=== PATIENT | female | born 1990 | race Caucasian/White ===

== ENCOUNTER 2016-11-08 23:00 | Emergency (ER) | payer OTHER ==
[2016-11-09] MEDS ORDERED: Cyclobenzaprine TAB* 10 MG PO ONE (00:36)
[2016-11-09] MEDS ORDERED: Ketorolac INJ* 60 MG/2 ML VIAL IM ONE (00:36)
[2016-11-09] MEDS ORDERED: HYDROcodone/ACETAMIN 5-325 MG* 1 TAB PO ONE (00:38)
--- NOTE | 2016-11-09 00:57 | ED ---
Back Pain - HPI Summary HPI Summary: Patient presents to ED with chronic yet intermittent lower back pain which radiates to the anterior thighs bilaterally and abdomen. She states the pain often will shoot down the leg and into the foot. Denies urinary symptoms. Denies bladder or bowel dysfunction. Patient states each time she is seen by her PCP or the ED she receives pain medications and nobody has told her how to get rid of the problem. Denies other health problems, however patient is a smoker. 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 Pain is bilateral to the spine and never midline. - History of Current Complaint Chief Complaint: EDBackInjuryPain Stated Complaint: BACK PAIN Time Seen by Provider: 11/08/16 23:33 Hx Obtained From: Patient Hx Last Menstrual Period: pt has iud Onset/Duration: Gradual Onset Onset/Duration: Started Weeks Ago Timing: Intermittent Back Pain Location: Is Discrete @ - bilateral to the lower spine - no midline tenderness Pain Intensity: 5 Pain Scale Used: 0-10 Numeric Character: Aching, Spasmodic Aggravating Symptom(s): Movement, Lifting, Bending, Walking Alleviating Symptom(s): Rest, Position Associated Signs And Symptoms: Positive: Abdominal Pain, Other - anterior thigh pain - Risk Factors AAA Risk Factors: Smoking TAD Risk Factors: Smoking Cauda Equina Risk Factors: Negative Epidural Abscess Risk Factors: Negative - Allergies/Home Medications Allergies/Adverse Reactions: Allergies Allergy/AdvReac Type Severity Reaction Status Date / Time No Known Allergies Allergy Verified 02/10/16 10:50 PMH/Surg Hx/FS Hx/Imm Hx Previously Healthy: Yes Endocrine/Hematology History: Denies: Hx Diabetes, Hx Thyroid Disease Cardiovascular History: Denies: Hx Hypertension Respiratory History: Denies: Hx Asthma, Hx Chronic Obstructive Pulmonary Disease (COPD) GI History: Denies: Hx Ulcer - Immunization History Hx Pertussis Vaccination: No Immunizations Up to Date: No Infectious Disease History: Denies: Hx Clostridium Difficile, Hx Hepatitis, Hx Human Immunodeficiency Virus (HIV), Hx of Known/Suspected MRSA, Hx Shingles, Hx Tuberculosis, Hx Known/ Suspected VRE, Hx Known/Suspected VRSA, History Other Infectious Disease, Traveled Outside the [place] in Last 30 Days - Family History Known Family History: Positive: None, Hypertension, Diabetes - Social History Occupation: Employed Full-time Lives: With Family Alcohol Use: Occasionally Hx Substance Use: No Substance Use Type: Reports: None Hx Tobacco Use: Yes Smoking Status (MU): Light Every Day Tobacco Smoker Type: Cigarettes Amount Used/How Often: 1/2 ppd Have You Smoked in the Last Year: Yes Review of Systems Constitutional: Negative Cardiovascular: Negative Respiratory: Negative Positive: no symptoms reported, see HPI Positive: Arthralgia, Myalgia - bilateral back pain over sacroiliac joints Skin: Negative Neurological: Negative Psychological: Normal All Other Systems Reviewed And Are Negative: Yes Physical Exam Triage Information Reviewed: Yes Vital Signs On Initial Exam: Initial Vitals Temp Pulse Resp BP Pulse Ox 97.6 F 84 18 116/77 100 11/08/16 23:03 11/08/16 23:03 11/08/16 23:03 11/08/16 23:03 11/08/16 23:03 Vital Signs Reviewed: Yes Appearance: Positive: Well-Appearing, Well-Nourished Skin: Positive: Warm, Skin Color Reflects Adequate Perfusion Eyes: Positive: [employer], Conjunctiva Clear Neck: Positive: Supple, No Lymphadenopathy Respiratory/Lung Sounds: Positive: Clear to Auscultation, Breath Sounds Present Cardiovascular: Positive: Normal, RRR, Pulses are Symmetrical in both Upper and Lower Extremities Musculoskeletal: Positive: Limited @ - d/t pain, Pain @ - sacroiliac joints bilaterally radiating to the anterior thighs and abdomen Neurological: Positive: Normal, Sensory/Motor Intact, Alert, Oriented to Person Place, Time, Speech Normal Psychiatric: Positive: Normal AVPU Assessment: Alert - Gina Coma Scale Best Eye Response: 4 - Spontaneous Best Motor Response: 6 - Obeys Commands Best Verbal Response: 5 - Oriented Diagnostics - Vital Signs Vital Signs Temp Pulse Resp BP Pulse Ox 11/08/16 23:03 97.6 F 84 18 116/77 100 - Laboratory Lab Statement: Any lab studies that have been ordered have been reviewed, and results considered in the medical decision making process. Back Pain Course/Dx - Course Course Of Treatment: Patient encouraged to follow up with ortho for persistent symptoms. Provider explained to patient the importance of lumbar back exercises , anti-inflammatories such as Ibuprofen, lidocaine patches and controlled substances for temporary relief. Relayed to patient these will merely improve symptoms short-term and she may need further evaluation or imaging through and orthopedist. Encouraged yoga for long-term improvement as well as turmeric for inflammation. Smoking and alcohol cessation discussed. Patient OK with plan and discharge. - Diagnoses Differential Diagnosis/HQI/PQRI: Positive: Cauda Equina Syndrome, Strain, Sprain Provider Diagnoses: Sciatica Discharge - Discharge Plan Condition: Stable Disposition: HOME Prescriptions: Cyclobenzaprine TAB* [Flexeril TAB*] 10 mg PO BID PRN #10 tab MDD 2 PRN Reason: Pain Gabapentin CAP(*) [Neurontin 300 CAP(*)] 300 mg PO TID #90 cap Hydrocodone/Acetamin 10/325(NF [[place] 10/325 (NF)] 1 tab PO Q6H #15 tab MDD 4 Lidocaine PATCH 5%* [Lidoderm 5% Patch*] 1 patch TRANSDERM DAILY #15 patch Patient Education Materials: Sciatica (ED), Lumbar Radiculopathy (ED), Piriformis Syndrome (ED), Lower Back Exercises (ED) Forms: *Work Release Referrals: Candida Brewer MD [Medical Doctor] - Shiva Fonseca MD [Primary Care Provider] - Additional Instructions: Follow up with Dr. Brewer or someone in her office. Exercises, yoga, turmeric and physical therapy long-term will help with sciatica. Moist heat as much as possible for comfort. Ibuprofen 600mg three times daily for pain. Avoid alcohol and smoking as these are inflammatory and will worsen your symptoms. Gabapentin 3 x daily until gone. Follow up with your primary to determine if they would like you to continue with this medication. Flexeril at bedtime or if you are experiencing muscle spasms. Hydrocodone for breakthrough pain not well controlled with Ibuprofen. Lidocaine patches to the lumbar spine daily as needed for pain. Turmeric (this comes in pill form or you can get the spice) - this will help with inflammation.
[2016-11-09] MEDS ORDERED: Lidocaine PATCH 5%* 1 PATCH TRANSDERM SCH (01:00)
[2016-11-09 01:25] VITALS: BP 104/57
[2016-11-09] MEDS ORDERED: Lidocaine Patch REMOVE* 1 NOTE MISC SCH (21:00)
== END 2016-11-09 01:24 | disposition home or self-care (01) ==
LOC: ED 23:00
DX: M54.30 Sciatica, unspecified side (principal); M54.5 Low back pain; F17.210 Nicotine dependence, cigarettes, uncomplicated
CPT/HCPCS: 99282; A9270-GY; J1885

== ENCOUNTER 2017-12-02 17:01 | Emergency (ER) | payer OTHER ==
--- NOTE | 2017-12-02 18:56 | RAD ---
Indication: Spotting, 7 weeks . Real-time sonography of the was performed. There is a single intrauterine gestation. Elverta-rump length measures 4 mm corresponding to gestational age of 6 weeks 0 days. heart activity is noted at 110 bpm. There is a small subchorionic hemorrhage measuring 5 x 1 x 7 mm. Amniotic fluid is within normal limits. Right ovary measures 2.8 x 1.7 x 1.7 cm. Left ovary measures 2.9 x 1.2 x 2.7 cm. No adnexal masses are noted. IMPRESSION: Single intrauterine gestation with a gestational age of 6 weeks 3 days. Estimated date of delivery is July 25, 2018. heart activity at 1 10 bpm. Small subchorionic hemorrhage is noted.
[2017-12-02 19:03] VITALS: BP 122/62
[2017-12-02 19:08] LABS: ABS Basophils 0 10^3/ul (0-0.2); ABS Eosinophils 0.1 10^3/ul (0-0.6); ABS Lymphocytes 1.9 10^3/ul (1.0-4.8); ABS Monocytes 0.8 10^3/ul (0-0.8); ABS Neutrophils 5.3 10^3/ul (1.5-7.7); ABS Nucleated RBC 0 10^3/ul; Eosinophil % 0.7 % (0-6); Hematocrit 37 % (35-47); Hemoglobin 12.7 g/dl (12.0-16.0); Lymphocyte % 23.1 % (25-47); Mean Corpuscular HGB Conc 34 g/dl (31-36); Mean Corpuscular Hemoglobin 32 pg (27-31); Mean Corpuscular Volume 92 fL (80-97); Mean Platelet Volume 8.5 um3 (7.4-10.4); Nucleated Red Blood Cells % 0.1; Platelet Count 232 10^3/ul (150-450); Red Blood Count 3.99 10^6/ul (4.0-5.4); Red Cell Distribution Width 14 % (10.5-15)
[2017-12-02 19:21] LABS: INR 1.02 (0.77-1.02)
[2017-12-02 19:27] LABS: EGFR Non-African American 150.3 (>60)
[2017-12-02 19:57] LABS: Urine Appearance Cloudy; Urine Blood 1+ (Negative); Urine Color Yellow; Urine Ketones Negative (Negative); Urine Protein Negative (Negative); Urine Specific Gravity 1.009 (1.010-1.030); Urine Urobilinogen Negative (Negative)
--- NOTE | 2017-12-02 23:40 | ED ---
Mack Hannah Nikita, scribed for Tequila Owens MD on 12/02/17 at 1807 . GI/ HPI - HPI Summary HPI Summary: This patient is a 27 year old F presenting to ED with a chief complaint of vaginal spotting for 2 days. She is 7 weeks , is taking vitamins, but has not seen her OB provider yet. The bleeding is described as constant, dark red blood with one clot,spotting, not requiring pads. She had one previous episode of spotting last week as well. The patient called her OB at [facility] with Dr. Alfonso and her first appointment is 4 days from today. The patient rates the pain 0/10 in severity. Symptoms aggravated by nothing. Symptoms alleviated by nothing. Patient reports fatigue. She currently does not have a due date for her . A2. Her LMP was 10/13/17. Her only child is 4 years old and this was her second . No PMHx. The patient had a D[place] that was done [place] [facility] [place] one of the [place]riages. In her past pregnancies, the patient reports she had been anemic and sick and had an infection after her child was born. She is currently taking vitamins, takes OTC Tylenol for any pain, and has no known allergies to medicine. The patient had peanuts and vitamin water 2 hours ago. Pt did not require rhogam in her prior pregnancies. - History of Current Complaint Chief Complaint: EDGeneral Time Seen by Provider: 12/02/17 17:57 Stated Complaint: 7 WKS PREG/SPOTTING Hx Obtained From: Patient Hx Last Menstrual Period: 10/13/17 Onset/Duration: Started Days Ago, Still Present Timing: Intermittent - 1 episode last week and another episode that started 2 days ago, Lasting Days Severity: Mild Current Severity: None Vaginal Bleeding Description: Dark Red, Clots Number of Pads per Day: 0 Pain Intensity: 0 Associated Signs and Symptoms: Positive: Other: - vaginal spotting, fatigue Additional Signs & Symptoms: Positive: Other: - vaginal spotting (constant, just dark red blood with one clot in her spotting), fatigue from current sickness Aggravating Factor(s): Nothing Alleviating Factor(s): Nothing - Allergy/Home Medications Allergies/Adverse Reactions: Allergies Allergy/AdvReac Type Severity Reaction Status Date / Time No Known Allergies Allergy Verified 12/02/17 17:09 PMH/Surg Hx/FS Hx/Imm Hx Previously Healthy: Yes Endocrine/Hematology History: Denies: Hx Diabetes, Hx Thyroid Disease Cardiovascular History: Denies: Hx Hypertension Respiratory History: Denies: Hx Asthma, Hx Chronic Obstructive Pulmonary Disease (COPD) GI History: Denies: Hx Ulcer - Surgical History Surgery Procedure, Year, and Place: D & C Infectious Disease History: No Infectious Disease History: Denies: Hx Clostridium Difficile, Hx Hepatitis, Hx Human Immunodeficiency Virus (HIV), Hx of Known/Suspected MRSA, Hx Shingles, Hx Tuberculosis, Hx Known/ Suspected VRE, Hx Known/Suspected VRSA, History Other Infectious Disease, Traveled Outside the [place] in Last 30 Days - Family History Known Family History: Positive: Hypertension, Diabetes - grandfather - Social History Alcohol Use: Occasionally Hx Substance Use: No Substance Use Type: Reports: None Hx Tobacco Use: Yes Smoking Status (MU): Former Smoker Type: Cigarettes Amount Used/How Often: 1/2 ppd Have You Smoked in the Last Year: Yes Review of Systems Positive: Fatigue Cardiovascular: Negative Respiratory: Negative Gastrointestinal: Negative Positive: other - vaginal spotting Skin: Negative Neurological: Negative Psychological: Normal All Other Systems Reviewed And Are Negative: Yes Physical Exam - Summary Physical Exam Summary: Appearance: Well-appearing, no pain distress, Well-nourished Skin: Warm, color reflects adequate perfusion Head: Normal Head/Face inspection Eyes: Conjunctiva clear ENT: Normal inspection Neck: Supple, no nodes, no JVD. Respiratory: Lungs clear, Normal breath sounds, no respiratory distress Cardio: RRR, No murmur, pulses normal, brisk capillary refill Abdomen: soft, nontender Bowel sounds: present Musculoskeletal: Strength Intact/ ROM intact. No calf tenderness. No edema. Psychological: Normal Neuro: Alert, muscle tone normal, no focal deficit Triage Information Reviewed: Yes Vital Signs On Initial Exam: Initial Vitals Temp Pulse Resp BP Pulse Ox 98.6 F 80 20 102/53 100 12/02/17 17:03 12/02/17 17:03 12/02/17 17:03 12/02/17 17:03 12/02/17 17:03 Vital Signs Reviewed: Yes Diagnostics - Vital Signs Vital Signs Temp Pulse Resp BP Pulse Ox 12/02/17 17:03 98.6 F 80 20 102/53 100 - Laboratory Result Diagrams: 12/02/17 18:58 12/02/17 18:58 Lab Statement: Any lab studies that have been ordered have been reviewed, and results considered in the medical decision making process. - Additional Comments Diagnostic Additional Comments: Transvaginal US reveals: Single intrauterine gestation with a gestational age of 6 weeks 3 days. Estimated date of delivery is July 25, 2018. heart activity at 1 10 bpm. Small subchorionic hemorrhage is noted. ED physician has reviewed this radiology report. Re-Evaluation - Re-Evaluation First Eval Re-Evaluation Time: 19:48 Change: Unchanged Comment: Pt without further bleeding or cramping. Discussed results and discharge plan with the patient. GIGU Course/Dx - Course Assessment/Plan: At 1800, the patient was taken from the waiting room to US. Transvaginal US reveals: Single intrauterine gestation with a gestational age of 6 weeks 3 days. Estimated date of delivery is July 25, 2018. heart activity at 1 10 bpm. Small subchorionic hemorrhage is noted. Consulted Dr. Alfonso at 1940 about the patient. Allergies noted. Pt medications reviewed this visit. The patient will be discharged with instructions to follow up with her OB Dr. Alfonso on 12/06/17. - Diagnoses Differential Diagnoses - Female: ACS, Ectopic , , Placenta Previa, Threatened , Other - subchorionic hematoma, first trimester Provider Diagnoses: Subchorionic hematoma, First trimester - Physician Notifications Discussed Care Of Patient With: Akhil Alfonso Time Discussed With Above Provider: 19:40 Instructed by Provider To: Other - Consulted Dr. Alfonso about the patient who advised pt to keep her appt for 12/06/17 Discharge - Sign-Out/Discharge Documenting (check all that apply): Discharge/Admit/Transfer - discharge home - Discharge Plan Condition: Stable Disposition: HOME Patient Education Materials: First Trimester Vaginal Bleed (ED), First Trimester (ED), Subchorionic Hemorrhage (ED) Referrals: Akhil Alfonso MD [Medical Doctor] - (See Dr. Alfonso at your appointment on Saturday.) Additional Instructions: We have given you a copy of your ultrasound report. We spoke with Dr. Alfonso and he advises you to keep your appointment for Saturday12/06/17. Return to the ER if you have any new or worsening symptoms. - Billing Disposition and Condition Condition: STABLE Disposition: HOME The documentation as recorded by the Mack elizalde Nikita accurately reflects the service I personally performed and the decisions made by , Tequila Owens MD.
== END 2017-12-02 19:53 | disposition home or self-care (01) ==
LOC: ED 17:01
DX: O20.9 Hemorrhage in early pregnancy, unspecified (principal); R53.83 Other fatigue; Z3A.01 Less than 8 weeks gestation of pregnancy; Z87.891 Personal history of nicotine dependence
CPT/HCPCS: 36415; 76817; 80053; 81003; 81015; 84702; 85025; 85610; 85730; 86900; 86901; 87086; 99283

== ENCOUNTER 2017-12-30 21:34 | Emergency (ER) | payer OTHER ==
[2017-12-30] MEDS ORDERED: Ondansetron ODT TAB* 4 MG PO ONE (21:43)
[2017-12-30] MEDS ORDERED: Acetaminophen TAB* 325 MG PO ONE (23:18)
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
[2017-12-31 00:36] VITALS: BP 94/50
== END 2017-12-31 00:36 | disposition home or self-care (01) ==
LOC: ED 21:34
DX: S06.0X9A Concussion with loss of consciousness of unspecified duration, initial encounter (principal); R51 Headache; R11.2 Nausea with vomiting, unspecified; Z87.891 Personal history of nicotine dependence; Y09 Assault by unspecified means; Y92.9 Unspecified place or not applicable
CPT/HCPCS: 99282; A9270-GY

== ENCOUNTER 2018-07-22 13:42 | Inpatient (IN) | payer OTHER, MEDICAID ==
--- NOTE | 2018-07-22 14:55 | HP ---
General Information - Reason for Visit induction of labor - General Information Maternal Age: 28 Grav: 4 Para: 1 SAB: 2 IEA: 0 Estimated Due Date: 07/23/18 Determined By: Early Ultrasound Gestational Age in Weeks/Days: 39.6 Maternal Blood Type and Rh: O Positive - Results this Serology/RPR Result: Non-Reactive Rubella Result: Non-Immune HBsAg Result: Negative HIV Result: Negative GBS Culture Result: Negative Past Medical History Delivery History: Hx Uncomplicated Vaginal Delivery Pertinent Past Medical History: See Records - back pain, Pertinent Past Surgical History: None Pertinent Family History: See Records - Antepartal Records Antepartal Records: Reviewed, Complicated by: - rubella equivocal, anemia Review of Systems Constitutional: Comfortable CV Complaint: No Respiratory: Shortness of Breath: No Gastrointestinal: No Nausea/Vomiting, Normal Bowel Movement Genitourinary: No Dysuria, No Bleeding, No Leaking Fluid Musculoskeletal: No Complaint, No Epigastric Pain Neurological: No Headache, No Visual Changes Movement: Normal Exam Allergies/Adverse Reactions: Allergies No Known Allergies Allergy (Verified 12/30/17 21:41) T:98.7, P:109, R:18, BP: 111/67, O2: 99% - Measurements Height: 5 ft 9 in Weight: 225 lb Weight in lbs: [id number] Body Mass Index (BMI): 33.2 Pre- Weight: 157 lb Weight Gained This : 68 lbs and 0 ozs - Exam Breast: Breast Exam Deferred CVA: No CVA Tenderness Extremities: No Edema Heart: Normal Rhythm/Heart Sounds HEENT: No Significant Findings Lungs: Clear Bilaterally Rectal: Rectal Exam Deferred Reflexes: DTR 2+ Thyroid: No Thyromegaly - Abdominal Exam Abdomen Exam: Non-Tender, Fundal Height Consistent with Dates - Ultrasound/Biophysical Profile Ultrasound Status: Not Done Targeted Exam Findings Estimated Weight: 8lbs Cervical Exam: 2cm Effacement: 60% Station: -2 Presenting Part: Vertex Membrane Status: Intact Bleeding/Discharge: None EFM Findings - External Monitor Findings Baseline Heart Rate: 140 External Monitor Findings: Accelerations Present, No Pattern of Variable or Late Decelerations, Variability Moderate, Baseline Stable Contractions: None Assessment/Plan - Assessment 28 y.o. , [id number], induction of labor - Plan Plan: Cervical Ripening - Date/Time of Admission Date of Admission: 07/22/16 Time of Admission: 14:00
[2018-07-22] MEDS ORDERED: Misoprostol TAB* 100 MCG PO ONE (14:56)
[2018-07-22] MEDS ORDERED: Misoprostol TAB* 100 MCG ONE (15:02)
[2018-07-22] MEDS ORDERED: Dinoprostone* 10 MG VAG.SUPP VAGINAL ONE (19:23)
[2018-07-22] MEDS ORDERED: Promethazine INJ(RESTRICTED)* 25 MG/ML 1 ML VIAL IM PRN (20:30)
[2018-07-22] MEDS ORDERED: Nalbuphine* 10 MG/ML 1 ML VIAL IM PRN (20:30)
--- NOTE | 2018-07-22 20:57 | PN ---
Progress Note - Progress Note Date of Service: 07/22/18 SOAP: Subjective: [Pt denies ctx, reports mild cramping, +FM, -LOF, -VB.] Objective: [127/79, P:112, R:17, T:98.0. FHT: 145 bpm, +accels, -decels, moderate variability cervix: 2/60/-2] Assessment: [28 y.o. 39w6d, cervical ripening] Plan: [1) Cervidil placed, reviewed R/B of medication 2) Therapeutic rest PRN 3) Reevaluate in AM or sooner PRN]
[2018-07-23] MEDS ORDERED: Misoprostol TAB* 100 MCG PO ONE (10:16)
[2018-07-23] MEDS ORDERED: Misoprostol TAB* 100 MCG ONE (10:18)
--- NOTE | 2018-07-23 19:41 | PN ---
Progress Note - Progress Note Date of Service: 07/23/18 SOAP: Subjective: [Pt reports cramping, denies regular ctx, reports +FM, denies VB, denies LOF.] Objective: [BP: 105/60, P:102, R:20, T:97.8 FHT: 145 baseline, +accels, -decels, moderate variability] Assessment: [28 y.o. 40wEGA, IOL] Plan: [1) Reviewed R/B of IOL and pitocin 2) Low dose pitocin]
[2018-07-23] MEDS: Lactated Ringers 1000 ML Bag* 1,000 ML IV SCH (19:50)
[2018-07-23] MEDS ORDERED: Oxytocin in LR* 20 UNITS/1,000 ML BAG IVPB SCH (20:00)
[2018-07-23] MEDS ORDERED: Oxytocin in LR* 20 UNITS/1,000 ML BAG IVPB ONE (20:07)
[2018-07-23 20:11] LABS: ABS Basophils 0 10^3/ul (0-0.2); ABS Eosinophils 0.1 10^3/ul (0-0.6); ABS Lymphocytes 1.7 10^3/ul (1.0-4.8); ABS Monocytes 1.1 10^3/ul (0-0.8); ABS Neutrophils 7.2 10^3/ul (1.5-7.7); ABS Nucleated RBC 0 10^3/ul; Eosinophil % 0.6 %; Hematocrit 34 % (35-47); Hemoglobin 11.5 g/dl (12.0-16.0); Lymphocyte % 17.2 %; Mean Corpuscular HGB Conc 34 g/dl (31-36); Mean Corpuscular Hemoglobin 31 pg (27-31); Mean Corpuscular Volume 92 fL (80-97); Mean Platelet Volume 9.5 fL (7.4-10.4); Nucleated Red Blood Cells % 0; Platelet Count 212 10^3/ul (150-450); Red Blood Count 3.73 10^6/ul (4.00-5.40); Red Cell Distribution Width 15 % (10.5-15); White Blood Count 10.2 10^3/ul (3.5-10.8)
[2018-07-23] MEDS ORDERED: Nalbuphine* 10 MG/ML 1 ML VIAL IV PRN (23:41)
[2018-07-23] MEDS ORDERED: Promethazine INJ(RESTRICTED)* 25 MG/ML 1 ML VIAL IV PRN ×2 (23:42→23:43)
[2018-07-23] MEDS ORDERED: Promethazine INJ(RESTRICTED)* 25 MG/ML 1 ML VIAL ONE (23:54)
[2018-07-24] MEDS ORDERED: OBEPIDURAL* 250 ML EPIDURAL ONE (06:28)
--- NOTE | 2018-07-24 06:31 | PN ---
Progress Note - Progress Note Date of Service: 07/24/18 SOAP: Subjective: [Pt increasingly uncomfortable. Requests epidural. Pt tried nitrous without improvement] Objective: [121/75, P:103, O2:100%, cervix: 6.5/90/-1, FHT: 150bpm, +accels, -decels, mod variability, ctx q 2-3min pitocin turned off. ] Assessment: [28 y.o. 39w6d EGA, IOL, SROM clear] Plan: [1) Anesthesia notified 2) pitocin stopped 3) therapeutic support PRN 4) Anticipate vaginal delivery]
[2018-07-24] MEDS ORDERED: Lactated Ringers 1000 ML Bag* 1,000 ML IV ONE ×2 (06:56→07:40)
[2018-07-24] MEDS ORDERED: fentaNYL* 50 MCG/ML 2 ML VIAL (100 MCG VIAL) ONE (07:08)
[2018-07-24] MEDS: Lactated Ringers 1000 ML Bag* 1,000 ML IV SCH (07:31)
[2018-07-24] MEDS ORDERED: Phenylephrine IV* 40 MCG/ML 10 ML SYRINGE IV PUSH PRN ×2 (07:40)
[2018-07-24] MEDS ORDERED: Lactated Ringers 1000 ML Bag* 500 ML IV PRN ×2 (07:40)
[2018-07-24] MEDS ORDERED: Sodium Citrate/Citric Acid* 15 ML UDC PO PRN (07:40)
[2018-07-24] MEDS ORDERED: Famotidine TAB* 20 MG PO PRN (07:40)
[2018-07-24] MEDS ORDERED: Hetastarch 6% in NS* 500 ML IV PRN (07:40)
[2018-07-24] MEDS ORDERED: Lactated Ringers 1000 ML Bag* 1,000 ML IV SCH ×2 (08:00→11:00)
[2018-07-24] MEDS ORDERED: OBEPIDURAL* 250 ML EPIDURAL SCH (08:00)
--- NOTE | 2018-07-24 08:11 | PN ---
Progress Note - Progress Note Date of Service: 07/24/18 SOAP: Subjective: [Pt comfortable after epidural, reports feeling shaky and cold. Pt denies feeling weak or faint.] Objective: [BP: 91/69, P:124, FHR: 150 bpm, + accels, -decels, moderate variability. Ctx q 5 min. Cervix: 9/90/-1] Assessment: [28 y.o. hypotension after epidural] Plan: [1) Anesthesia called 2) Epinephrine 3) Position changes for descent 4) Anticipate vaginal delivery]
[2018-07-24] MEDS ORDERED: Misoprostol TAB* 200 MCG PR ONE (10:28)
[2018-07-24] MEDS ORDERED: Glycerin ADULT SUPP PR PRN (10:28)
[2018-07-24] MEDS ORDERED: Acetaminophen TAB* 325 MG PO PRN (10:28)
[2018-07-24] MEDS ORDERED: Dibucaine 1% 28.35 GM TUBE PR PRN (10:28)
[2018-07-24] MEDS ORDERED: Witch Hazel PAD* JAR TOPICAL PRN (10:28)
--- NOTE | 2018-07-24 10:31 | PROCNOTE ---
[facility] OB: Delivery Note - Delivery A Date of : 07/24/18 [place] Sex: Male Gestational Age in Weeks and Days at Delivery: 40 Weeks and 1 Days Delivery Method: Spontaneous Vaginal Labor: Induced Did Patient attempt ?: N/A, No Previous Amniotic Fluid: Clear Estimated Blood Loss: 400 Anesthesia/Analgesia: CEI for Labor Delivered By: Charissa Arana - Nursery Level of Nursery: Regular/Bedside - Perineum Perineal Injury: None/Intact - Events Delivery Events of Note: Pitocin During Labor, Post- Bleeding - Meds Given Delivery Events of Note Comment: cytotec 800mcg
[2018-07-24] MEDS ORDERED: Oxytocin in LR* 20 UNITS/1,000 ML BAG IVPB SCH (11:00)
[2018-07-24] MEDS ORDERED: Simethicone TAB* 80 MG TAB.CHEW PO SCH (12:30)
[2018-07-24] MEDS: Ibuprofen TAB* 600 MG PO PRN ×2 (13:06→20:11)
[2018-07-24] MEDS: Docusate CAP* 100 MG PO SCH ×2 (13:06→20:11)
[2018-07-24] MEDS ORDERED: Phenylephrine INJ* 10 MG/ML 1 ML VIAL (10 MG) ONE (18:59)
[2018-07-24] MEDS ORDERED: oxyCODONE/Acetamin 5/325 MG* TAB PO PRN (21:52)
[2018-07-25] MEDS: Ibuprofen TAB* 600 MG PO PRN (06:59)
[2018-07-25 08:21] LABS: ABS Basophils 0 10^3/ul (0-0.2); ABS Eosinophils 0.2 10^3/ul (0-0.6); ABS Lymphocytes 2.7 10^3/ul (1.0-4.8); ABS Monocytes 1.1 10^3/ul (0-0.8); ABS Nucleated RBC 0 10^3/ul; Eosinophil % 1.8 %; Hematocrit 30 % (35-47); Hemoglobin 10.1 g/dl (12.0-16.0); Lymphocyte % 24.8 %; Mean Corpuscular HGB Conc 34 g/dl (31-36); Mean Corpuscular Hemoglobin 31 pg (27-31); Mean Corpuscular Volume 92 fL (80-97); Mean Platelet Volume 9.2 fL (7.4-10.4); Nucleated Red Blood Cells % 0; Platelet Count 172 10^3/ul (150-450); Red Blood Count 3.27 10^6/ul (4.00-5.40); Red Cell Distribution Width 15 % (10.5-15); White Blood Count 11.1 10^3/ul (3.5-10.8)
[2018-07-25] MEDS ORDERED: Ferrous Gluconate TAB* 324 MG TAB PO SCH (09:00)
[2018-07-25] MEDS: Docusate CAP* 100 MG PO SCH (09:48)
[2018-07-25] MEDS ORDERED: Measles, Mumps,Rubella VACC* 0.5 ML/VIAL SUBCUT ONE (12:00)
[2018-07-25 12:08] VITALS: BP 98/59
== END 2018-07-25 13:52 | disposition home or self-care (01) | DRG 806 ==
LOC: MCHOBOUT 13:42 → MCHOB 07-24 04:49
PROVIDERS: ADMIT Midwife; ATTEND Midwife
PROC: 10E0XZZ Delivery of Products of Conception, External Approach (ICD-10-PCS; principal; 2018-07-24)
PROC: 3E033VJ Introduction of Other Hormone into Peripheral Vein, Percutaneous Approach (ICD-10-PCS; 2018-07-24)
DX: O48.0 Post-term pregnancy (principal); O98.52 Other viral diseases complicating childbirth; Z37.0 Single live birth; O26.53 Maternal hypotension syndrome, third trimester; Z3A.40 40 weeks gestation of pregnancy
CPT/HCPCS: 36415; 85025; 86850; 86900; 86901; 90707; A9270-GY; J2300; J2550; J3010; S0191